=== PATIENT | male | born 2000 | race African-American/Black ===

== ENCOUNTER 2022-06-19 20:12 | Emergency (ER) | payer OTHER ==
[~2022-06-19] VITALS: Ht 175.3 cm; Wt 95.3 kg
[2022-06-19] MEDS ORDERED: IBUPROFEN 600 MG TAB PO STA (21:29)
[2022-06-19] MEDS ORDERED: IBUPROFEN 600 MG TAB ONE (21:45)
== END 2022-06-19 22:50 | disposition home or self-care (01) ==
LOC: FSED 20:25
DX: S83.422A Sprain of lateral collateral ligament of left knee, initial encounter (principal); W01.0XXA Fall on same level from slipping, tripping and stumbling without subsequent striking against object, initial encounter; Y93.61 Activity, american tackle football; Y99.0 Civilian activity done for income or pay
CPT/HCPCS: 99283